=== PATIENT | female | born 1995 | race Caucasian/White ===

== ENCOUNTER 2019-07-15 14:29 | Outpatient (CLI) | payer OTHER ==
--- NOTE | 2019-07-15 15:02 | RAD ---
Exam: 3 views nasal bones HISTORY: Superficial nasal injury FINDINGS: No fracture. No cortical irregularity. /Calvarium is unremarkable. Symmetric aeration visualized paranasal sinuses and mastoid air cells IMPRESSION: No fracture.
== END 2019-07-15 14:30 | disposition home or self-care (01) ==
LOC: BICRAD 14:29
PROVIDERS: ATTEND Family Medicine
DX: S00.30XA Unspecified superficial injury of nose, initial encounter (principal)
CPT/HCPCS: 70160